=== PATIENT | male | born 1970 | race Caucasian/White ===

== ENCOUNTER 2018-11-10 20:31 | Emergency (ER) | payer OTHER, SELFPAY ==
[2018-11-10 20:35] VITALS: BP 157/99; PULSE 89; RESP 18; TEMP 36.7; O2SAT 97; BMI 29.2
--- NOTE | 2018-11-10 21:01 | DI.CT.S_ITS ---
PROCEDURE: CT SOFT TISSUE NECK W CON INDICATIONS: fullness pain, palpable mass L neck, hx x1 TECHNIQUE: After the administration of intravenous contrast, 3.0 mm axial sections acquired from the sella to the aortic arch. Additional oblique axial 3.0 mm sections acquired through the pharynx. 3 mm thick coronal and sagittal reformats were generated. For radiation dose reduction, the following was used: automated exposure control. COMPARISON: None. FINDINGS: Image quality: Excellent. Lymph nodes: No enlarged lymph nodes seen throughout the neck. Vessels: Visualized vasculature appears patent. Neck spaces: The oropharynx, nasopharynx, and pharynx demonstrate no mucosal lesions. The vocal cords, false vocal cords, pyriform sinuses, epiglottis, vallecula, and tongue base all appear normal. Extramucosal spaces appear unremarkable. Glands: There are a couple of 3 mm nodules in the left parotid. Submandibular glands appear normal. Thyroid gland is normal. Miscellaneous: Visualized brain and orbits appear normal. Lung apices appear clear. Superficial soft tissues appear normal. Bones: No suspicious bony lesions. Visualized sinuses appear unremarkable. There is fluid in the right mastoids suspicious for mastoiditis. IMPRESSION: 1. No mass effect is identified in neck. If clinical symptoms persist, recommend ENT consultation and direct visualization. 2. No cervical lymphadenopathy. 3. A couple of 3 mm nodules in the left parotid gland, probably small intraparotid lymph nodes or pleomorphic adenomas. Recommend clinical correlation and followup. Dictated by: Tamika Paige M.D. on 11/11/2018 at 7:52 Transcribed by: TRISTAN on 11/11/2018 at 7:58 Approved by: Tamika Paige M.D. on 11/11/2018 at 18:34
[2018-11-10 21:08] LABS: Add Manual Diff / Slide Review NO; Basophils Absolute Auto 100 /uL (0-100); Basophils Percent Auto 0.9 % (0-2); Eosinophils Absolute Auto 200 /uL (0-450); Eosinophils Percent Auto 3.4 % (2-4); Hemoglobin 15.2 g/dL (13.5-17.5); Lymphocytes Absolute Auto 1600 /uL (1100-4500); Lymphocytes Percent Auto 24.2 % (25-40); Mean Corpuscular HGB Conc 35.3 % (30-36); Mean Corpuscular Hemoglobin 32.2 PG (26-34); Mean Corpuscular Volume 91.1 fL (80-100); Monocytes Absolute Auto 400 /uL (0-900); Monocytes Percent Auto 6.2 % (3-14); Neutrophils Absolute Auto 4500 /uL (1500-7000); Neutrophils Percent Auto 65.3 % (50-75); Platelet Count 207 X10^3/uL (150-400); Red Blood Cell Count 4.72 X10^6/uL (4.5-5.9); Red Cell Distribution Width 13.1 % (11.6-14.8); White Blood Cell Count 6.8 X10^3/uL (4.5-11.0)
[2018-11-10] MEDS: DEXAMETHASONE 10 MG/ML VIAL IV (21:08)
[2018-11-10] MEDS: SODIUM CHLORIDE 0.9% 1,000 ML 1000 ML IV (21:09)
[2018-11-10 21:19] LABS: BUN Creatinine Ratio 21.1 (6-22); Blood Urea Nitrogen 19 mg/dL (9-20); Carbon Dioxide 24 mmol/L (22-32); Chloride 107 mmol/L (98-107); Estimated Glomerular Filt Rate > 60.0 mL/min (>60); Glucose 105 mg/dL (70-100); HEMOLYSIS 17 (0-50); Potassium 4.1 mmol/L (3.4-5.1); Sodium 140 mmol/L (137-145)
[2018-11-10 22:00] VITALS: BP 113/75
--- NOTE | 2018-11-10 23:07 | ED_ITS ---
HPI - Neck Pain/Injury General Chief Complaint: Neck Pain/Injury Stated Complaint: something bothering his throat, hard to swallow Time Seen by Provider: 11/10/18 20:40 Source: patient Mode of arrival: ambulatory Limitations: no limitations History of Present Illness HPI Narrative: 48-year-old male otherwise healthy former smoker presents with a chief complaint of a few days of left anterior neck swelling, tenderness and perceived difficulty in swallowing. He has had no fever or chills and denies nausea or vomiting. He denies any recent injury. He states many years ago he had a very similar circumstance where he developed a cyst in his throat which required intervention to drain. He already has an existing appointment with local ear nose and throat on November 22. He is admittedly anxious as reminds him of the prior episode as mentioned MD complaint: neck pain Onset (ago): day(s) Radiation: left lateral Severity: moderate Quality: aching Duration: progressively worsening Relieving factors: none Exacerbating factors: none Associated symptoms: none Treatments prior to arrival: none Related Data Previous Rx's Medication Instructions Recorded oseltamivir [Tamiflu] 75 mg PO BID #10 cap 08/01/17 Allergies Allergy/AdvReac Type Severity Reaction Status Date / Time No Known Allergies Allergy Uncoded 09/08/17 12:30 Review of Systems Constitutional Denies chills, Denies fever(s), Denies lethargy and Denies weakness Eyes Denies change in vision, Denies eye discharge, Denies irritation and Denies loss of vision ENT Ears, Nose, Mouth, and Throat: Denies change in voice, Reports neck pain, Reports sore throat and Reports throat swelling Cardiovascular Denies chest pain, Denies irregular heart rhythm, Denies lightheadedness, Denies palpitations, Denies dyspnea, Denies dyspnea on exertion and Denies orthopnea Respiratory Denies cough, Denies dyspnea, Denies dyspnea on exertion and Denies wheezing Gastrointestinal Gastrointestinal: Denies abdominal pain, Denies change in bowel habits, Denies diarrhea, Denies nausea and Denies vomiting Genitourinary Denies hematuria, Denies flank pain, Denies urinary incontinence and Denies urin erik urgency Musculoskeletal Reports neck pain Integumentary/Breasts Denies pruritus, Denies erythema, Denies rash and Denies wounds Neurologic Denies confusion, Denies loss of vision and Denies weakness Psychiatric Denies anxiety, Denies confusion, Denies depression, Denies homicidal ideation and Denies suicidal ideation Endocrine Denies palpitations Hematologic/Lymphatic Denies easy bruising Allergic/Immunologic Reports throat swelling and Denies wheezing PFSH Social History Smoking Status: Former smoker Social History Smoking Status: Former smoker Exam Narrative Exam Narrative: GENERAL: 48-year-old male appears stated age, well appearing but visibly anxious HEAD: Atraumatic. Normocephalic. No temporal or scalp tenderness. EYES: Pupils equal round and reactive. Extraocular motions intact. No scleral icterus. No injection or drainage. ENT: Nose without bleeding, purulent drainage or septal hematoma. Throat without erythema, tonsillar hypertrophy or exudate. Uvula midline. Airway patent. NECK: Mild swelling to left side of neck, mildly tender to palpation. No erythema, induration, warmth or fluctuance Trachea midline. No JVD or lymphadenopathy. CARDIOVASCULAR: Regular rate and rhythm without murmurs, gallops, or rubs. RESPIRATORY: Clear to auscultation. Breath sounds equal bilaterally. No wheezes, rales, or rhonchi. GASTROINTESTINAL: Abdomen soft, non-tender, nondistended. No hepato-splen omegaly, or palpable masses. No guarding. EXTREMITIES: No clubbing, cyanosis, or edema. No joint tenderness, effusion, or edema noted. BACK: Nontender without deformity or crepitance. No flank tenderness. NEURO: AOx3. SKIN: No rash or erythema. Initial Vital Signs Initial Vital Signs: Vital Signs Temperature 98.1 F 11/10/18 20:35 Pulse Rate 89 11/10/18 20:35 Respiratory Rate 18 11/10/18 20:35 Blood Pressure 157/99 H 11/10/18 20:35 Pulse Oximetry 97 11/10/18 20:35 Course Orders Ordered: ED Orders 11/10/18 20:55 Basic Metabolic Panel Stat Complete Blood Count AUTO DIFF Stat 11/10/18 21:01 CT soft tissue neck w con Stat Discontinued Medications Dexamethasone (Decadron) 10 mg IV NOW ONE Stop: 11/10/18 20:59 Last Admin: 11/10/18 21:08 Dose: 10 mg Sodium Chloride (Normal Saline 0.9%) 1,000 mls @ 1,000 mls/hr IV BOLUS ONE Stop: 11/10/18 22:00 Last Infusion: 11/10/18 22:45 Dose: 0 mls/hr Admin: 11/10/18 21:09 Dose: 1,000 mls/hr Vital Signs - 8 hr 11/10/18 20:35 11/10/18 22:00 11/10/18 23:14 Temperature 98.1 F Pulse Rate 89 71 Respiratory Rate 18 Blood Pressure 157/99 H 115/73 Blood Pressure [Left Arm] 113/75 Pulse Oximetry 97 98 MDM - Neck Pain/Injury Lab Data Result diagrams: 11/10/18 20:55 11/10/18 20:55 Lab Results 11/10/18 11/10/18 Range/Units 20:55 20:55 WBC 6.8 (4.5-11.0) X10^3/uL RBC 4.72 (4.5-5.9) X10^6/uL Hgb 15.2 (13.5-17.5) g/dL Hct 43.0 (41-53) % MCV 91.1 (80-100) fL MCH 32.2 (26-34) PG MCHC 35.3 (30-36) % RDW 13.1 (11.6-14.8) % Plt Count 207 (150-400) X10^3/uL Neut % (Auto) 65.3 (50-75) % Lymph % (Auto) 24.2 L (25-40) % [place] % (Auto) 6.2 (3-14) % Eos % (Auto) 3.4 (2-4) % Baso % (Auto) 0.9 (0-2) % Neut # (Auto) 4500 (7423-3145) /uL Lymph # (Auto) 1600 (2245-3146) /uL [place] # (Auto) 400 (0-900) /uL Eos # (Auto) 200 (0-450) /uL Baso # (Auto) 100 (0-100) /uL Sodium 140 (137-145) mmol/L Potassium 4.1 (3.4-5.1) mmol/L Chloride 107 (98-107) mmol/L Carbon Dioxide 24 (22-32) mmol/L BUN 19 (9-20) mg/dL Creatinine 0.90 (0.66-1.25) mg/dL Estimated GFR > 60.0 (>60) mL/min BUN/Creatinine Ratio 21.1 (6-22) Glucose 105 H (70-100) mg/dL Calcium 9.0 (8.4-10.2) mg/dL Imaging Data neck soft tissue CT: Radiologist's impression: No abscess or suspicious mass. Swelling of L submandibular exam MDM Narrative Medical decision making narrative: Multiple etiologies of left lateral neck swelling and perceived fullness and throat considered including abscess, foreign body, cyst versus other. Imaging is very reassuring. Patient resting comfortably, controlling his own secretions. Labs unremarkable. He has established care with local ENT but was encouraged to contact them tomorrow for a more prompt follow-up. He and were given return precautions and have had their questions answered to their apparent satisfaction Discharge Plan Departure Patient Disposition: Home Clinical Impression: Submandibular gland swelling Discharge Date/Time: 11/10/18 23:16 Interventions: ED Discharge Assessment Last Done: 11/10/18 23:14 Instructions: DI for Neck Pain Activity Restrictions/Additional Instructions: *You have been diagnosed with [left-sided neck swelling, CT notes submandibular gland swelling] *What to do: *Follow up with [facility], call for an appointment. Let them know you were seen in the Emergency Department and that we ask that you be seen in follow up sooner than your existing appointment on 11/22 *Return to ER if you should have any new, worsening or concerning symptoms Prescriptions: No Action oseltamivir [Tamiflu] 75 MG capsule 75 mg PO BID Qty: 10 RF: 0 Referrals: Augustus Hampton MD [Physician] -
[2018-11-10 23:14] VITALS: BP 115/73; PULSE 71; O2SAT 98
== END 2018-11-10 23:16 | disposition home or self-care (01) ==
PROVIDERS: Emergency Provider Emergency Medicine
DX: R59.0 Localized enlarged lymph nodes (principal)
CPT/HCPCS: 36591; 70491; 80048; 85025; 96361; 96374; 99283; 99284; J1100

== ENCOUNTER 2018-11-12 07:41 | Emergency (ER) | payer OTHER, SELFPAY ==
--- NOTE | 2018-11-12 07:42 | ED_ITS ---
HPI - General Adult General Chief complaint: Skin/Abscess/Foreign Body Stated complaint: bilat foot pain/rash Time Seen by Provider: 11/12/18 07:42 Source: patient Mode of arrival: ambulatory Limitations: no limitations History of Present Illness HPI narrative: Patient is a 48-year-old male who was seen here in the emergency department a couple days ago for a concern of a swelling in his neck. He was given Decadron and had a CT scan with contrast of his neck. The CT scan was unremarkable. Patient with [facility] until yesterday morning. He states he was out in his yd on a tractor when he started noticing bilateral foot pain. When he came back inside he noticed that he had a rash on his feet. Does not extend above the ankles. Has tenderness with walking. Endorses no new exposures. No fevers. No new medications. No trauma. Related Data Previous Rx's Medication Instructions Recorded prednisone 40 mg PO DAILY 7 Days #14 tab 11/12/18 Allergies Allergy/AdvReac Type Severity Reaction Status Date / Time No Known Drug Allergies Allergy Verified 11/12/18 07:51 Review of Systems Constitutional Denies fever(s) Cardiovascular Denies chest pain and Denies dyspnea Respiratory Denies dyspnea Gastrointestinal Gastrointestinal: Denies abdominal pain Genitourinary Denies dysuria Musculoskeletal Comments: Bilateral foot pain Integumentary/Breasts Comments: Rash on bilateral feet with swelling Neurologic Denies behavioral changes Psychiatric Denies behavioral changes Hematologic/Lymphatic Denies easy bleeding and Denies easy bruising [facility] Medical History Patient denies medical problems (Acute) Social History Smoking Status: Former smoker Social History Smoking Status: Former smoker Exam Initial Vital Signs Initial Vital Signs: Vital Signs Temperature 98.1 F 11/12/18 07:49 Pulse Rate 71 11/12/18 07:49 Respiratory Rate 18 11/12/18 07:49 Blood Pressure 134/81 11/12/18 07:49 Pulse Oximetry 98 11/12/18 07:49 Const General: cooperative, well developed, well groomed and No acute distress Orientation: alert and awake [facility] Head: normal to inspection and normocephalic Cardio Pulses: dorsalis pedis present bilaterally Skin Other: Patient with a rash to bilateral feet. It does not extend proximal to the ankles. Left foot is greater than right. Rash does appear to be petechial in nature. It is nonblanching. He does have a couple areas on the inside of his left foot that potentially were previous blisters. Does have a well demarcated line along the arch of the right foot however there is some petechiae on the bottom of his foot. No drainage. Not warm to the touch. Neuro Sensory Exam: no sensory deficits noted Extrem Other: Swelling to bilateral feet with left greater than right. Ankles unremarkable bilateral Psych Appearance: grossly normal and well kempt Course Orders Ordered: ED Orders 11/12/18 08:12 Basic Metabolic Panel Stat Complete Blood Count AUTO DIFF Stat Partial Thromboplastin Time Stat Prothrombin Time INR Stat Vital Signs - 8 hr 11/12/18 07:49 Temperature 98.1 F Pulse Rate 71 Respiratory Rate 18 Blood Pressure 134/81 Pulse Oximetry 98 Medical Decision Making Lab Data Lab results reviewed: Yes I reviewed the patient's lab results. Result diagrams: 11/12/18 08:12 11/12/18 08:12 Lab Results 11/12/18 11/12/18 11/12/18 Range/Units 08:12 08:12 08:12 WBC 8.3 (4.5-11.0) X10^3/uL RBC 4.33 L (4.5-5.9) X10^6/uL Hgb 13.8 (13.5-17.5) g/dL Hct 39.9 L (41-53) % MCV 92.2 (80-100) fL MCH 31.9 (26-34) PG MCHC 34.7 (30-36) % RDW 12.6 (11.6-14.8) % Plt Count 183 (150-400) X10^3/uL Neut % (Auto) 63.7 (50-75) % Lymph % (Auto) 26.6 (25-40) % [place] % (Auto) 7.4 (3-14) % Eos % (Auto) 1.8 L (2-4) % Baso % (Auto) 0.5 (0-2) % Neut # (Auto) 5300 (0507-9470) /uL Lymph # (Auto) 2200 (5514-5142) /uL [place] # (Auto) 600 (0-900) /uL Eos # (Auto) 200 (0-450) /uL Baso # (Auto) 0 (0-100) /uL PT 11.4 (10.1-12.7) SECONDS INR 1.0 (0.9-1.3) APTT 34 (26.4-36.2) SECONDS Sodium 141 (137-145) mmol/L Potassium 3.8 (3.4-5.1) mmol/L Chloride 109 H (98-107) mmol/L Carbon Dioxide 25 (22-32) mmol/L BUN 24 H (9-20) mg/dL Creatinine 0.90 (0.66-1.25) mg/dL Estimated GFR > 60.0 (>60) mL/min BUN/Creatinine Ratio 26.7 H (6-22) Glucose 83 (70-100) mg/dL Calcium 8.9 (8.4-10.2) mg/dL MDM Narrative Medical decision making narrative: Labs here in the emergency department showed normal LFTs and normal platelets. This was ordered because the petechial like look of the rash. Patient has no new exposures however upon further questioning he states that the boots that he was wearing he has only warned them 2 or 3 times prior to yesterday. He states that they were rubber boots and his feet did become extremely hot while they were in them and also sweating. His rash does not appear to be infectious in nature. I do not believe this is an allergic reaction to the Decadron or the IV contrast from his last visit here in the ER which he was concerned about. Will send him home on a course of some st eroids. He was given strict return precautions. Both he and his expressed understanding and agreement plan. Discharge Plan Departure Patient Disposition: Home Clinical Impression: Rash Instructions: DI for Rash Activity Restrictions/Additional Instructions: Take the prednisone like we discussed. I also recommend that you keep your feet out of shoes and socks for the next day if possible and keep your feet elevated as much as possible. Return to the emergency department for any new or worsening symptoms. You can use Tylenol and/or ibuprofen for any pain. You can also use Benadryl for any itching as needed. Prescriptions: New prednisone 20 mg tablet 40 mg PO DAILY 7 Days Qty: 14 RF: 0
[2018-11-12 07:49] VITALS: BP 134/81; PULSE 71; RESP 18; TEMP 36.7; O2SAT 98
[2018-11-12 08:16] LABS: Add Manual Diff / Slide Review NO; Basophils Absolute Auto 0 /uL (0-100); Basophils Percent Auto 0.5 % (0-2); Eosinophils Absolute Auto 200 /uL (0-450); Eosinophils Percent Auto 1.8 % (2-4); Hematocrit 39.9 % (41-53); Hemoglobin 13.8 g/dL (13.5-17.5); Lymphocytes Absolute Auto 2200 /uL (1100-4500); Lymphocytes Percent Auto 26.6 % (25-40); Mean Corpuscular HGB Conc 34.7 % (30-36); Mean Corpuscular Hemoglobin 31.9 PG (26-34); Mean Corpuscular Volume 92.2 fL (80-100); Monocytes Absolute Auto 600 /uL (0-900); Monocytes Percent Auto 7.4 % (3-14); Neutrophils Absolute Auto 5300 /uL (1500-7000); Neutrophils Percent Auto 63.7 % (50-75); Platelet Count 183 X10^3/uL (150-400); Red Blood Cell Count 4.33 X10^6/uL (4.5-5.9); Red Cell Distribution Width 12.6 % (11.6-14.8); White Blood Cell Count 8.3 X10^3/uL (4.5-11.0)
[2018-11-12 08:21] LABS: Prothrombin Time 11.4 SECONDS (10.1-12.7)
[2018-11-12 08:23] LABS: PTT Partial Thromboplastin Tim 34 SECONDS (26.4-36.2)
[2018-11-12 08:25] LABS: BUN Creatinine Ratio 26.7 (6-22); Blood Urea Nitrogen 24 mg/dL (9-20); Calcium 8.9 mg/dL (8.4-10.2); Carbon Dioxide 25 mmol/L (22-32); Chloride 109 mmol/L (98-107); Estimated Glomerular Filt Rate > 60.0 mL/min (>60); Glucose 83 mg/dL (70-100); HEMOLYSIS < 15 (0-50); Potassium 3.8 mmol/L (3.4-5.1); Sodium 141 mmol/L (137-145)
[2018-11-12 08:48] VITALS: BP 116/87
[2018-11-12 08:50] VITALS: PULSE 77; RESP 16; O2SAT 96
== END 2018-11-12 08:54 | disposition home or self-care (01) ==
PROVIDERS: Emergency Provider Emergency Medicine
DX: R21 Rash and other nonspecific skin eruption (principal)
CPT/HCPCS: 36415; 80048; 85025; 85610; 85730; 99282; 99283

== ENCOUNTER 2020-04-03 11:47 | Emergency (ER) | payer OTHER, SELFPAY ==
[2020-04-03 12:02] VITALS: BP 134/82; PULSE 102; RESP 16; TEMP 36.7; O2SAT 94; BMI 29.2
--- NOTE | 2020-04-03 16:15 | DI.RAD.S_ITS ---
PROCEDURE: XR CHEST 2V INDICATIONS: covid +, increasing sob, productive cough TECHNIQUE: 2 views of the chest were acquired. COMPARISON: None. FINDINGS: Surgical changes and devices: None. Lungs and pleura: Diffuse interstitial prominence with scattered ill-defined nodular opacities throughout the bilateral hemithoraces. No substantial pleural effusions or pneumothorax. Mediastinum: Mediastinal contours are normal. Heart size is normal. Bones and chest wall: No suspicious bony abnormalities. Status post prior surgical fixation of right midclavicular fracture. Soft tissues appear unremarkable. IMPRESSION: Findings compatible with multi-focal airspace disease/pneumonia to include reported history of COVID. Dictated by: Willis Hobbs M.D. on 04/03/2020 at 15:34 Approved by: Willis Hobbs M.D. on 04/03/2020 at 15:44
[2020-04-03 17:50] VITALS: BP 129/90; PULSE 85; RESP 16; TEMP 37.7; O2SAT 95
--- NOTE | 2020-04-03 18:37 | ED.URI ---
HPI - URI/Sore Throat <JOHNATHAN Catherine-BC - Last Filed: 04/03/20 19:07> General Chief Complaint: Upper Respiratory Symptoms Stated Complaint: coughing up clear phlem for 9 days Time Seen by Provider: 04/03/20 15:42 Source: patient Mode of arrival: Wheelchair Limitations: no limitations History of Present Illness HPI Narrative: The patient is a 50-year-old male former smoker who denies pertinent medical history presents with a chief complaint of continued cough. He tested positive for coronavirus 10 days ago. The patient states that he is frustrated because his cough is not improving. He had transient diarrhea. He denies any increased shortness of breath. He denies any history of lung disease such as COPD. He states he is in the emergency department today because his cough is not improved any is coughing so much that it hurts. He states he is using Tessalon Perles and [id number] cough syrup. He states he cannot sleep he is coughing so bad. Related Data Previous Rx's Medication Instructions Recorded azithromycin See Rx Instructions .ROUTE 04/03/20 .COMPLEX #6 tab codeine-guaifenesin [Guaifenesin 10 ml PO Q4-6H PRN #100 ml 04/03/20 AC] ketorolac 10 mg PO TID PRN #15 tab 04/03/20 ondansetron 4 mg PO Q6H PRN #20 tab 04/03/20 Allergies Allergy/AdvReac Type Severity Reaction Status Date / Time No Known Drug Allergies Allergy Verified 04/03/20 12:02 Review of Systems <ERAN Catherine - Last Filed: 04/03/20 19:07> Review of Systems Narrative: GENERAL: See HPI HEENT: Denies sinus pain, ear pain, sore throat, difficulty swallowing, dizziness. RESPIRATORY: See HPI CARDIOVASCULAR: Denies chest pain, palpitations, orthopnea, edema, GASTROINTESTINAL: Denies nausea, vomiting, abdominal pain, diarrhea, constipation, melena. : Denies dysuria, frequency, incontinence, hematuria, urinary retention. MUSCULOSKELETAL: denies weakness, joint pain, or bony pain SKIN: Denies rash, skin lesions, or other NEUROLOGIC: Denies weakness, headache, numbness, change in speech, confusion, seizures, incoordination. PSYCHIATRIC: No concerning psychosocial issues. 12 point review of systems is negative except for those stated above Patient History <ERAN Catherine - Last Filed: 04/03/20 19:07> Medical History Patient denies medical problems (Acute) Social History Smoking Status: Former smoker Smoking Status: Former smoker alcohol intake frequency: holidays/special occasions only Substance Use Type: does not use Exam <ERAN Catherine - Last Filed: 04/03/20 19:07> Narrative Exam Narrative: GENERAL: This is a well-nourished, well-developed patient, in appears fatigued HEAD: Atraumatic. Normocephalic. No temporal or scalp tenderness. EYES: Pupils equal round and reactive. Extraocular motions intact. No scleral icterus. No injection or drainage. ENT: Nose without bleeding, purulent drainage or septal hematoma. Throat without erythema, tonsillar hypertrophy or exudate. Uvula midline. Airway patent. NECK: Trachea midline. No JVD or lymphadenopathy. Supple, nontender, no meningeal signs. CARDIOVASCULAR: Regular rate and rhythm without murmurs, gallops, or rubs. RESPIRATORY: Coarse bilaterally to auscultation. Breath sounds equal bilaterally. No wheezes, rales, or rhonchi. Persistent dry cough during exam. GASTROINTESTINAL: Abdomen soft, non-tender, nondistended. No hepato-splenomegaly, or palpable masses. No guarding. Active bowel sounds all 4 quadrants EXTREMITIES: No clubbing, cyanosis, or edema. No joint tenderness, effusion, or edema noted. BACK: Nontender without deformity or crepitance. No flank tenderness. NEURO: AOx3. SKIN: No rash or erythema on visible skin Initial Vital Signs Initial Vital Signs: Vital Signs Temperature 98.1 F 04/03/20 12:02 Pulse Rate 102 H 04/03/20 12:02 Respiratory Rate 16 04/03/20 12:02 Blood Pressure 134/82 04/03/20 12:02 Pulse Oximetry 94 04/03/20 12:02 <Samuel Ryder MD - Last Filed: 04/04/20 08:16> Initial Vital Signs Initial Vital Signs: Vital Signs Temperature 98.1 F 04/03/20 12:02 Pulse Rate 102 H 04/03/20 12:02 Respiratory Rate 16 04/03/20 12:02 Blood Pressure 134/82 04/03/20 12:02 Pulse Oximetry 94 04/03/20 12:02 Scores <ERAN Catherine - Last Filed: 04/03/20 19:07> GCS Veronica coma scale eye opening: Spontaneous Veronica coma scale verbal response: Orientated Veronica coma scale motor response: Obey commands Benedict coma scale total score: 15 Course <ERAN Catherine - Last Filed: 04/03/20 19:07> Orders Ordered: ED Orders 04/03/20 16:15 XR chest 2V Stat Vital Signs Vital signs: Vital Signs - 8 hr 04/03/20 12:02 04/03/20 17:50 Temperature 98.1 F 99.9 F H Pulse Rate 102 H 85 Respiratory Rate 16 16 Blood Pressure 134/82 129/90 Pulse Oximetry 94 95 <Samuel Ryder MD - Last Filed: 04/04/20 08:16> Orders Ordered: ED Orders 04/03/20 16:15 XR chest 2V Stat Vital Signs Vital signs: Vital Signs - 8 hr 04/03/20 12:02 04/03/20 17:50 Temperature 98.1 F 99.9 F H Pulse Rate 102 H 85 Respiratory Rate 16 16 Blood Pressure 134/82 129/90 Pulse Oximetry 94 95 MDM - URI/Sore Throat <ERAN Catherine - Last Filed: 04/03/20 19:07> Imaging Data Chest x-ray: Radiologist's Impression: [address] [place] [id number] XRay Report Signed Patient: Patrick Espinoza LMR#: [id number] : 1970Acct:[id number] Age/Sex: 50 / MDate of Service: 04/03/20 Loc: ED Accession Number: [id number] Procedure: XR chest 2V Ordering Provider: Nereida Matos PROCEDURE: XR CHEST 2V INDICATIONS: covid +, increasing sob, productive cough TECHNIQUE: 2 views of the chest were acquired. COMPARISON: None. FINDINGS: Surgical changes and devices: None. Lungs and pleura: Diffuse interstitial prominence with scattered ill-defined nodular opacities throughout the bilateral hemithoraces. No substantial pleural effusions or pneumothorax. Mediastinum: Mediastinal contours are normal. Heart size is normal. Bones and chest wall: No suspicious bony abnormalities. Status post prior surgical fixation of right midclavicular fracture. Soft tissues appear unremarkable. IMPRESSION: Findings compatible with multi-focal airspace disease/pneumonia to include reported history of COVID. Dictated by: Willis Hobbs M.D. on 04/03/2020 at 15:34 Approved by: Willis Hobbs M.D. on 04/03/2020 at 15:44 [facility] Narrative Medical decision making narrative: The patient is a 50-year-old male who presents with a chief complaint of continued coughing related to coronavirus. X-ray was obtained, does show multifocal airspace disease consistent with coronavirus. Patient is hemodynamically stable, oxygenating well, 95% on room air. He comes in mostly because he is concerned about continued cough. I discussed at length continued symptomatic care. Reviewed patient's x-ray and case with Dr Ryder and elected to treat the patient with azithromycin at this point. Did give small course of guaifenesin with codeine to help the patient sleep, prescription of Zofran as well as Toradol. Discussed conflicting resort regarding NSAIDs and coronavirus, but patient states he is tolerating ibuprofen while at home would like something else for extra aches and pains. Discussed not combining with ibuprofen. Encouraged follow-up with primary care provider in the next few days as well as come back to the ER for any significant shortness of breath or acute concerns. Patient has no questions or concerns upon discharge and states understanding of return precautions as well as follow-up care. Did give patient emergency department phone number so that he can call before arriving to the ER. Discharge Plan Departure Patient Disposition: Home Clinical Impression: COVID-19, Cough Discharge Date/Time: 04/03/20 18:22 Instructions: DI for Cough -- Adult, DI for COVID-19 (Suspected or Confirmed ), Coronavirus Disease 2019, Can COVID-19 be prevented? Activity Restrictions/Additional Instructions: Thank you for trusting us with your care today. As discussed, your x-ray shows consistency with coronavirus. Given that you recently tested positive, this is not surprising. However your vital signs are stable and you are oxygenating well I sent four prescriptions to in [place]. This includes ketorolac or Toradol for pain, an antibiotic, guaifenesin with codeine, as well as Zofran or ondansetron if your nauseous with medication I have given you a prescription of Toradol. This is an NSAID. Do not combine it with other NSAIDs such as Aleve or ibuprofen. I suggest taking it with some food, as it can irritate your stomach. I have given you a prescription of a narcotic for cough. Be aware that this can be constipating and sedating. I encouraged taking with a stool softener, pushing fluids and fiber. Do not take and drive, operate heavy machinery, etc. Do not combine it with any other sedating substances such as alcohol. The combination of narcotics and alcohol and/or other sedatives can be lethal. Please follow-up with primary care provider in the next few days. Please wash your hands cover your intake all necessary precautions As discussed, please call the emergency department at [phone] if you have to come back to the ER. That we can prepared to take excellent care of you. If you for get that is okay, just please let us know if you check in Prescriptions: New azithromycin 250 mg tablet See Rx Instructions .ROUTE .COMPLEX Qty: 6 RF: 0 ondansetron 4 mg tablet,disintegrating 4 mg PO Q6H PRN (Reason: nausea and vomiting) Qty: 20 RF: 0 ketorolac 10 mg tablet 10 mg PO TID PRN (Reason: pain) Qty: 15 RF: 0 codeine-guaifenesin [Guaifenesin AC] 10-100 mg/5 mL liquid 10 ml PO Q4-6H PRN (Reason: cough) Qty: 100 RF: 0 Referrals: Janeth Verdugo PA-C [Primary Care Provider] - <Samuel Ryder MD - Last Filed: 04/04/20 08:16> Cosign ED Attending Cosignature Attestation: I was immediately available in the department for consultation. This documentation has been reviewed and I agree with assessment and plan. Supervised by Samuel Ryder MD
== END 2020-04-03 18:22 | disposition home or self-care (01) ==
PROVIDERS: Emergency Provider Nurse Practitioner Family; PCP Physician Assistant Medical
DX: U07.1 COVID-19 (principal); R05 Cough; R06.02 Shortness of breath
CPT/HCPCS: 71046; 99283

== ENCOUNTER 2021-02-12 13:49 | Emergency (ER) | payer OTHER, SELFPAY ==
[2021-02-12] VITALS (12 sets, daily range): BP systolic 121–154; BP diastolic 77–89; PULSE 56–69; RESP 12–25; TEMP 36.7–37; O2SAT 94–99; BMI 29.5
--- NOTE | 2021-02-12 13:57 | DI.RAD.S_ITS ---
PROCEDURE: XR CHEST 1V INDICATIONS: Chest pain TECHNIQUE: One view of the chest was acquired. COMPARISON: [facility], CR, XR CHEST 2V, 04/03/2020, 16:18. FINDINGS: Surgical changes and devices: Right clavicular ORIF. Lungs and pleura: Lungs are clear. No pleural effusions or pneumothorax. Mediastinum: Mediastinal contours appear normal. Heart size is at the upper limits of normal. Bones and chest wall: No suspicious bony lesions. Overlying soft tissues appear unremarkable. IMPRESSION: No acute pulmonary process. Dictated by: Bina Larose M.D. on 02/12/2021 at 14:15 Approved by: Bina Larose M.D. on 02/12/2021 at 14:16
--- NOTE | 2021-02-12 14:02 | ED.GENADULT ---
HPI - General Adult General Chief complaint: Chest Pain Stated complaint: CHEST PAIN Time Seen by Provider: 02/12/21 13:56 Source: patient Mode of arrival: EMS History of Present Illness HPI narrative: 51-year-old male was brought in by EMS for evaluation of chest discomfort. He states he had some slight discomfort yesterday but really is here because he woke up this morning approximately 0700 hours with a pressure in his chest. Also pain to his right shoulder. Is been constant since that time. Not worse with palpation. No worse with movement. No worse with breathing. No prior history of cardiac issues. Is afebrile. No coughing. Is unvaccinated gets COVID-19 but had COVID the end of last year. EMS was called. He received nitro without any change in his symptoms. Also received morphine with only minor improvement. Has not tried anything for his symptoms otherwise prior to arrival. Related Data Previous Rx's Medication Instructions Recorded azithromycin 250 mg tablet See Rx Instructions .ROUTE 04/03/20 .COMPLEX #6 tab codeine 10 mg-guaifenesin 100 mg/5 10 ml PO Q4-6H PRN #100 ml 04/03/20 mL oral liquid (Guaifenesin AC) ketorolac 10 mg tablet 10 mg PO TID PRN #15 tab 04/03/20 ondansetron 4 mg disintegrating 4 mg PO Q6H PRN #20 tab 04/03/20 tablet codeine 10 mg-guaifenesin 100 mg/5 10 ml PO Q4-6H PRN #100 ml 04/04/20 mL oral liquid (Guaifenesin AC) Allergies Allergy/AdvReac Type Severity Reaction Status Date / Time No Known Drug Allergies Allergy Verified 04/03/20 12:02 Review of Systems Constitutional Constitutional: Reports system reviewed and no additional complaints, except as documented ENT Ears, Nose, Mouth, and Throat: Denies sore throat Cardiovascular Cardiovascular: Reports as per HPI and Reports system reviewed and no additional complaints, except as documented Respiratory Respiratory: Reports system reviewed and no additional complaints, except as documented Gastrointestinal Gastrointestinal: Reports system reviewed and no additional complaints, except as documented Musculoskeletal Musculoskeletal: Reports system reviewed and no additional complaints, except as documented Integumentary/Breasts Skin/Breast: Reports system reviewed and no additional complaints, except as documented Neurologic Neurologic: Reports system reviewed and no additional complaints, except as documented Hematologic/Lymphatic On Anticoagulants: No Patient History Medical History (Updated 02/12/21 @ 17:05 by Rk Arreaga DO) Patient denies medical problems Social History Smoking Status: Former smoker Smoking Status: Former smoker alcohol intake frequency: holidays/special occasions only Substance Use Type: does not use Exam Initial Vital Signs Initial Vital Signs: Vital Signs Pulse Rate 66 02/12/21 13:54 Pulse Oximetry 97 02/12/21 13:54 Const General: cooperative and comfortable HENMT Head: normal to inspection and normocephalic Eyes General: appearance normal, both eyes and all related structures Resp Effort & Inspection: normal respiratory effort Auscultation: clear to auscultation bilaterally Cardio Rate: regular rate Rhythm: regular rhythm GI Inspection: normal to inspection Skin General: no rashes or lesions noted Neuro General: patient alert, patient awake, patient oriented x3 and moves all extremities Extrem General: normal to inspection Psych Appearance: grossly normal Scores GCS Veronica coma scale eye opening: Spontaneous Veronica coma scale verbal response: Orientated Veronica coma scale motor response: Obey commands Veronica coma scale total score: 15 PERC Score Age greater than or equal to 50 years: Yes Heart rate greater than or equal to 100 bpm: No Room Air O2 Sat less than 95%: No Unilateral leg swelling: No Recent trauma or surgery: No Hemoptysis: No Prior PE or DVT: No Hormone Use: No Total PERC Score: 1 Course Orders Ordered: ED Orders 02/12/21 13:57 XR chest 1V Stat 02/12/21 13:58 EKG-12 Lead Stat 02/12/21 14:00 Complete Blood Count AUTO DIFF Stat Comprehensive Metabolic Panel Stat Lipase Stat Troponin & CK Cardiac Panel Stat 02/12/21 14:46 D Dimer Stat 02/12/21 16:08 Troponin & CK Cardiac Panel Stat Discontinued Medications Lorazepam (Lorazepam 0.5 Mg Tablet) 1 mg PO NOW ONE Stop: 02/12/21 15:36 Last Admin: 02/12/21 15:49 Dose: 1 mg Documented by: SAGAR Vital Signs Vital signs: Vital Signs - 8 hr 02/12/21 13:54 02/12/21 14:00 02/12/21 14:03 Temperature 98.0 F Pulse Rate 66 66 61 Respiratory Rate 13 20 Blood Pressure 128/78 Pulse Oximetry 97 95 95 02/12/21 14:30 02/12/21 14:45 02/12/21 15:00 Temperature Pulse Rate 69 61 57 L Respiratory Rate 25 H 12 14 Blood Pressure 121/77 126/77 Pulse Oximetry 95 94 95 02/12/21 15:30 02/12/21 15:48 02/12/21 16:00 Temperature Pulse Rate 59 L 57 L 56 L Respiratory Rate 14 15 17 Blood Pressure 154/88 H 140/89 129/86 Pulse Oximetry 97 96 99 02/12/21 16:30 02/12/21 17:00 02/12/21 17:18 Temperature 98.6 F Pulse Rate 62 66 Respiratory Rate 17 13 Blood Pressure 127/86 132/88 Pulse Oximetry 98 97 Medical Decision Making Lab Data Lab results reviewed: Yes I reviewed the patient's lab results. Result diagrams: 02/12/21 14:00 02/12/21 14:00 Labs: Lab Results 02/12/21 02/12/21 02/12/21 Range/Units 14:00 14:00 14:46 WBC 4.3 L (4.5-11.0) X10^3/uL RBC 4.64 (4.5-5.9) X10^6/uL Hgb 14.8 (13.5-17.5) g/dL Hct 42.6 (41-53) % MCV 91.8 (80-100) fL MCH 31.8 (26-34) PG MCHC 34.6 (30-36) % RDW 12.9 (11.6-14.8) % Plt Count 188 (150-400) X10^3/uL Neut % (Auto) 53.7 (50-75) % Lymph % (Auto) 31.8 (25-40) % Sullivan % (Auto) 10.4 (3-14) % Eos % (Auto) 3.1 (2-4) % Baso % (Auto) 1.0 (0-2) % Neut # (Auto) 2300 (9143-0888) /uL Lymph # (Auto) 1400 (4537-2896) /uL Sullivan # (Auto) 400 (0-900) /uL Eos # (Auto) 100 (0-450) /uL Baso # (Auto) 0 (0-100) /uL D-Dimer < 200 (<230) ng/mL Sodium 140 (137-145) mmol/L Potassium 4.1 (3.4-5.1) mmol/L Chloride 108 H (98-107) mmol/L Carbon Dioxide 26 (22-32) mmol/L BUN 17 (9-20) mg/dL Creatinine 0.86 (0.66-1.25) mg/dL Estimated GFR > 60.0 (>60) mL/min BUN/Creatinine Ratio 19.8 (6-22) Glucose 93 (70-100) mg/dL Calcium 9.0 (8.4-10.2) mg/dL Total Bilirubin 0.6 (0.2-1.3) mg/dL AST 31 (17-59) IU/L ALT 34 (<50) IU/L Alkaline Phosphatase 50 (38-126) U/L Total Creatine Kinase 228 H (55-170) U/L CK-MB (CK-2) 0.66 (<2.37) ng/mL CK-MB (CK-2) Rel Index 0.3 L (1.5-5.0) % Troponin I < 0.012 (0.01-0.034) ng/mL Total Protein 7.2 (6.3-8.2) g/dL Albumin 4.5 (3.5-5.0) g/dL Globulin 2.7 (1.7-4.1) g/dL Albumin/Globulin Ratio 1.7 (1.0-2.8) Lipase 104 (23-300) U/L 02/12/21 Range/Units 16:08 WBC (4.5-11.0) X10^3/uL RBC (4.5-5.9) X10^6/uL Hgb (13.5-17.5) g/dL Hct (41-53) % MCV (80-100) fL MCH (26-34) PG MCHC (30-36) % RDW (11.6-14.8) % Plt Count (150-400) X10^3/uL Neut % (Auto) (50-75) % Lymph % (Auto) (25-40) % Sullivan % (Auto) (3-14) % Eos % (Auto) (2-4) % Baso % (Auto) (0-2) % Neut # (Auto) (7104-7681) /uL Lymph # (Auto) (9846-9547) /uL Sullivan # (Auto) (0-900) /uL Eos # (Auto) (0-450) /uL Baso # (Auto) (0-100) /uL D-Dimer (<230) ng/mL Sodium (137-145) mmol/L Potassium (3.4-5.1) mmol/L Chloride (98-107) mmol/L Carbon Dioxide (22-32) mmol/L BUN (9-20) mg/dL Creatinine (0.66-1.25) mg/dL Estimated GFR (>60) mL/min BUN/Creatinine Ratio (6-22) Glucose (70-100) mg/dL Calcium (8.4-10.2) mg/dL Total Bilirubin (0.2-1.3) mg/dL AST (17-59) IU/L ALT (<50) IU/L Alkaline Phosphatase (38-126) U/L Total Creatine Kinase 203 H (55-170) U/L CK-MB (CK-2) 0.60 (<2.37) ng/mL CK-MB (CK-2) Rel Index 0.3 L (1.5-5.0) % Troponin I < 0.012 (0.01-0.034) ng/mL Total Protein (6.3-8.2) g/dL Albumin (3.5-5.0) g/dL Globulin (1.7-4.1) g/dL Albumin/Globulin Ratio (1.0-2.8) Lipase (23-300) U/L Imaging Data Chest x-ray: Radiologist's Impression: [address] [address] XRay Report Signed Patient: Patrick Espinoza MR#: [id number] : 1970 Acct:[id number] Age/Sex: 51 / M Date of Service: 02/12/21 Loc: ED Accession Number: [id number] ?? Procedure: XR chest 1V Ordering Provider: Rk Arreaga D.O. PROCEDURE:? XR CHEST 1V ? INDICATIONS:? Chest pain ? TECHNIQUE:? One view of the chest was acquired.? ? COMPARISON:? [facility], CR, XR CHEST 2V, 04/03/2020, 16:18. ? FINDINGS:? ? Surgical changes and devices:? Right clavicular ORIF. ? Lungs and pleura:? Lungs are clear.? No pleural effusions or pneumothorax.? ? Mediastinum:? Mediastinal contours appear normal.? Heart size is at the upper limits of normal. ? Bones and chest wall:? No suspicious bony lesions.? Overlying soft tissues appear unremarkable.? ? IMPRESSION:? No acute pulmonary process. ? ? Dictated by: Bina Larose M.D. on 02/12/2021 at 14:15 ? ? Approved by: Bina Larose M.D. on 02/12/2021 at 14:16? ECG Data Attestation: I personally reviewed and interpreted this ECG as follows: Interpretation: Sinus rhythm Ventricular rate is 66 Normal axis Normal QRS Normal QTC No ST T wave changes MDM Narrative Medical decision making narrative: Patient has 2- troponins. Both of them greater than 6 hours at the onset of his constant discomfort. Chest x-ray is unremarkable. EKG is unremarkable. He did feel better after the Ativan. Do suspect a component of stress and anxiety to his symptoms however he was informed that he needed to contact his primary doctor for follow-up and discuss further workup to include stress testing. He expressed understanding agreement. Discharge Plan Departure Patient Disposition: Home Clinical Impression: Atypical chest pain Instructions: DI for Atypical Chest Pain Activity Restrictions/Additional Instructions: Your workup here in the emergency department is very reassuring. I recommend that you contact your primary doctor to discuss further workup to include the indications for stress test. Continue all of your medications as directed. Return to the emergency department for any new or worsening symptoms Prescriptions: No Action azithromycin 250 mg tablet See Rx Instructions .ROUTE .COMPLEX Qty: 6 RF: 0 ondansetron 4 mg tablet,disintegrating 4 mg PO Q6H PRN (Reason: nausea and vomiting) Qty: 20 RF: 0 ketorolac 10 mg tablet 10 mg PO TID PRN (Reason: pain) Qty: 15 RF: 0 codeine-guaifenesin [Guaifenesin AC] 10-100 mg/5 mL liquid 10 ml PO Q4-6H PRN (Reason: cough) Qty: 100 RF: 0 codeine-guaifenesin [Guaifenesin AC] 10-100 mg/5 mL liquid 10 ml PO Q4-6H PRN (Reason: cough) Qty: 100 RF: 0 Referrals: Janeth Verdugo PA-C [Primary Care Provider] -
[2021-02-12 14:15] LABS: Add Manual Diff / Slide Review NO; Basophils Absolute Auto 0 /uL (0-100); Eosinophils Absolute Auto 100 /uL (0-450); Eosinophils Percent Auto 3.1 % (2-4); Hematocrit 42.6 % (41-53); Hemoglobin 14.8 g/dL (13.5-17.5); Lymphocytes Absolute Auto 1400 /uL (1100-4500); Lymphocytes Percent Auto 31.8 % (25-40); Mean Corpuscular HGB Conc 34.6 % (30-36); Mean Corpuscular Hemoglobin 31.8 PG (26-34); Mean Corpuscular Volume 91.8 fL (80-100); Monocytes Absolute Auto 400 /uL (0-900); Monocytes Percent Auto 10.4 % (3-14); Neutrophils Absolute Auto 2300 /uL (1500-7000); Neutrophils Percent Auto 53.7 % (50-75); Platelet Count 188 X10^3/uL (150-400); Red Blood Cell Count 4.64 X10^6/uL (4.5-5.9); Red Cell Distribution Width 12.9 % (11.6-14.8); White Blood Cell Count 4.3 X10^3/uL (4.5-11.0)
[2021-02-12 14:29] LABS: Alanine Aminotransferase 34 IU/L (<50); Albumin 4.5 g/dL (3.5-5.0); Albumin Globulin Ratio 1.7 (1.0-2.8); Alkaline Phosphatase 50 U/L (38-126); Aspartate Aminotransferase 31 IU/L (17-59); BUN Creatinine Ratio 19.8 (6-22); Bilirubin Total 0.6 mg/dL (0.2-1.3); Blood Urea Nitrogen 17 mg/dL (9-20); Carbon Dioxide 26 mmol/L (22-32); Chloride 108 mmol/L (98-107); Creatine Kinase 228 U/L (55-170); Estimated Glomerular Filt Rate > 60.0 mL/min (>60); Globulin 2.7 g/dL (1.7-4.1); Glucose 93 mg/dL (70-100); HEMOLYSIS 18 (0-50); Lipase 104 U/L (23-300); Potassium 4.1 mmol/L (3.4-5.1); Sodium 140 mmol/L (137-145); Total Protein 7.2 g/dL (6.3-8.2)
[2021-02-12 14:41] LABS: Troponin I < 0.012 ng/mL (0.01-0.034)
[2021-02-12 14:44] LABS: CKMB % Relative Index 0.3 % (1.5-5.0); Creatine Kinase MB 0.66 ng/mL (<2.37)
[2021-02-12 15:01] LABS: D Dimer < 200 ng/mL (<230)
[2021-02-12] MEDS: LORazepam 0.5 MG TABLET 1 MG PO (15:49)
[2021-02-12 16:26] LABS: Creatine Kinase 203 U/L (55-170)
[2021-02-12 16:38] LABS: Troponin I < 0.012 ng/mL (0.01-0.034)
[2021-02-12 16:42] LABS: CKMB % Relative Index 0.3 % (1.5-5.0)
== END 2021-02-12 17:29 | disposition home or self-care (01) ==
PROVIDERS: Emergency Provider Emergency Medicine; PCP Physician Assistant Medical
DX: R07.89 Other chest pain (principal); Z86.16 Personal history of COVID-19
CPT/HCPCS: 36415; 71045; 80053; 82550; 82553; 83690; 84484; 85025; 85379; 93005; 93010; 99283; 99284

== ENCOUNTER 2024-10-27 23:36 | Emergency (ER) | payer OTHER, SELFPAY ==
--- NOTE | 2024-10-27 23:39 | DI.RAD.S_ITS ---
PROCEDURE: XR CHEST 1V INDICATIONS: Chest Pressure TECHNIQUE: One view of the chest was acquired. COMPARISON: [facility], CR, XR CHEST 1V, 02/12/2021, 14:07. [facility], CR, XR CHEST 2V, 04/03/2020, 16:18. FINDINGS: Surgical changes and devices: Right clavicle plate and screw fixation. Lungs and pleura: Lungs are clear. No pleural effusions or pneumothorax. Mediastinum: Mediastinal contours appear normal. Heart size is enlarged. Bones and chest wall: No suspicious bony lesions. Overlying soft tissues appear unremarkable. IMPRESSION: No acute cardiopulmonary abnormality is seen. Dictated by: Meet Murphy M.D. on 10/27/2024 at 23:56 Approved by: Meet Murphy M.D. on 10/27/2024 at 23:56
--- NOTE | 2024-10-27 23:44 | EKG_ITS ---
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
[2024-10-27 23:51] VITALS: BP 123/72; PULSE 75; RESP 18; O2SAT 96; BMI 30.7
[2024-10-28 00:01] VITALS: BP 114/73; PULSE 74; RESP 15; O2SAT 95
--- NOTE | 2024-10-28 00:06 | PC.NURSE ---
Pt states I feel a flutter in my chest and the urge to cough, then the cough seems to clear it. Also states When I laid down to go to sleep I just knew something wasn't right.
[2024-10-28 00:28] LABS: Add Manual Diff / Slide Review NO; Basophils Absolute Auto 100 /uL (0-100); Basophils Percent Auto 0.8 % (0-2); Eosinophils Absolute Auto 300 /uL (0-450); Eosinophils Percent Auto 4.2 % (2-4); Hematocrit 41.8 % (41-53); Hemoglobin 14.8 g/dL (13.5-17.5); Lymphocytes Absolute Auto 2200 /uL (1100-4500); Lymphocytes Percent Auto 28.2 % (25-40); Mean Corpuscular HGB Conc 35.3 % (30-36); Mean Corpuscular Hemoglobin 32.8 PG (26-34); Mean Corpuscular Volume 92.8 fL (80-100); Monocytes Absolute Auto 700 /uL (0-900); Monocytes Percent Auto 9.6 % (3-14); Neutrophils Absolute Auto 4400 /uL (1500-7000); Neutrophils Percent Auto 57.2 % (50-75); Platelet Count 193 X10^3/uL (150-400); Red Blood Cell Count 4.51 X10^6/uL (4.5-5.9); Red Cell Distribution Width 13.2 % (11.6-14.8); White Blood Cell Count 7.7 X10^3/uL (4.5-11.0)
[2024-10-28 00:30] VITALS: BP 113/73; PULSE 69; RESP 14; O2SAT 94
[2024-10-28 00:40] LABS: Prothrombin Time 11.3 SECONDS (9.4-12.5)
[2024-10-28 00:43] LABS: Alanine Aminotransferase 66 IU/L (<50); Albumin 4.1 g/dL (3.5-5.0); Albumin Globulin Ratio 1.6 (1.0-2.8); Alkaline Phosphatase 73 U/L (38-126); Aspartate Aminotransferase 39 IU/L (17-59); BUN Creatinine Ratio 20.7 (6-22); Bilirubin Total 0.5 mg/dL (0.2-1.3); Blood Urea Nitrogen 23 mg/dL (9-20); Calcium 9.2 mg/dL (8.4-10.2); Carbon Dioxide 23 mmol/L (22-32); Chloride 109 mmol/L (98-107); Creatine Kinase 104 U/L (55-170); Estimated Glomerular Filt Rate > 60 mL/min (>60); Globulin 2.6 g/dL (1.7-4.1); Glucose 105 mg/dL (70-99); HEMOLYSIS 21 (0-50); Lipase 139 U/L (23-300); Magnesium 2.1 mg/dL (1.6-2.3); PTT Partial Thromboplastin Tim 36 SECONDS (25.1-36.5); Potassium 3.9 mmol/L (3.4-5.1); Sodium 139 mmol/L (137-145); Total Protein 6.7 g/dL (6.3-8.2)
[2024-10-28 00:54] LABS: NT-proBNP (BNP-Adult 18+) < 20 pg/mL (<125); Troponin I < 0.012 ng/mL (0.01-0.034)
[2024-10-28 01:00] VITALS: BP 120/70; PULSE 70; RESP 14; O2SAT 92
[2024-10-28 01:30] VITALS: BP 120/69; PULSE 65; RESP 16; O2SAT 91
[2024-10-28 02:00] VITALS: BP 122/71; PULSE 63; RESP 17; O2SAT 92
[2024-10-28 02:30] VITALS: BP 111/74; PULSE 58; RESP 14; O2SAT 94
--- NOTE | 2024-10-28 02:35 | ED_ITS ---
HPI - Chest Pain General Chief Complaint: Chest Pain Stated Complaint: chest pressure Time Seen by Provider: 10/28/24 02:35 Source: patient, EMS, RN notes reviewed and old records reviewed Mode of arrival: EMS Limitations: no limitations History of Present Illness HPI narrative: 54-year-old male no reported medical issues who presents with complaint of some substernal pressure and a rolling/fluttering sensation that started Wednesday morning proceeded throughout the day. Patient states it is currently resolved. Did have some episodes here in the department. Denies fevers, cold or congestion. Denies any shortness of breath. States did make him feel like he needed to cough. Denies any foul taste in his mouth. Patient states did not radiate to his back, neck, belly or arms. Has not had similar in the past. Has had some chronic swelling in his right lower extremity on and off in the past states he was has a history of hip pain but no prior surgeries in that leg. No warmth, no erythema or other skin changes. Denies any nausea or vomiting no diarrhea or constipation. No urinary symptoms. No lightheadedness or passing out. He was states no daily medications did not take any prescription meds. Prior history of clavicle surgery. No known drug allergies. No tobacco, alcohol or recreational drugs. He is accompanied by his . States his mom had angioplasty in her later years. No known DVT or blood clot history for himself or family. He denies any long distance travel. Related Data Previous Rx's ?Medication ?Instructions ?Recorded azithromycin 250 mg tablet See Rx Instructions PO .COM PLEX #6 04/03/20 tabs codeine 10 mg-guaifenesin 100 mg/5 10 ml PO Q4-6H PRN cough #100 mL 04/03/20 mL oral liquid (Guaifenesin AC) ketorolac 10 mg tablet 10 mg PO TID PRN pain #15 ta bs 04/03/20 ondansetron 4 mg disintegrating 4 mg PO Q6H PRN nausea and 04/03/20 tablet vomiting #20 tabs codeine 10 mg-guaifenesin 100 mg/5 10 ml PO Q4-6H PRN cough #100 mL 04/04/20 mL oral liquid (Guaifenesin AC) Allergies Allergy/AdvReac Type Severity Reaction Status Date / Time No Known Drug Allergies Allergy Verified 04/03/20 12:02 Review of Systems Review of Systems ROS Unobtainable: All systems reviewed & are unremarkable except as noted in HPI and below Patient History Medical History (Updated 10/28/24 @ 02:59 by Nereida Chahal DO) Patient denies medical problems alcohol intake frequency: holidays/special occasions only Exam Narrative Exam Narrative: GENERAL: Alert and oriented x three, male in mild distress HEENT: Head normocephalic, atraumatic, EOMI, pupils reactive, face symmetric, moist mucous membranes NECK: Supple, full range of motion CARDIOVASCULAR: Regular rate and rhythm without murmurs, rubs or gallops. RESPIRATORY: Breath sounds equal bilaterally, no wheezes rales or rhonchi. ABDOMEN: Soft, nontender. Normoactive bowel sounds all 4 quadrants. No guarding or rebound, rigidity, no mass : No CVA tenderness EXTREMITIES: Normal range of motion, no clubbing. Trace pedal edema left slightly greater than right. Neurovascularly intact NEUROLOGICAL: Cranial nerves II through XII grossly intact. Moving all extremities SKIN: Warm, dry, no petechiae, no rashes or lesions. Initial Vital Signs Initial Vital Signs: Vital Signs Pulse Rate 75 10/27/24 23:51 Respiratory Rate 18 10/27/24 23:51 Blood Pressure 123/72 10/27/24 23:51 Pulse Oximetry 96 10/27/24 23:51 Oxygen Delivery Method Room Air 10/27/24 23:51 Course Orders Ordered: Discontinued Medications Aspirin (Aspirin 81 Mg Chew Tab) 324 mg PO NOW ONE Stop: 10/27/24 23:40 Last Admin: 10/28/24 00:17 Dose: Not Given Documented By: LS Vital Signs Vital signs: Vital Signs - 8 hr 10/27/24 23:51 10/28/24 00:01 10/28/24 00:01 Pulse Rate 75 74 Respiratory Rate 18 15 Blood Pressure 123/72 114/73 Pulse Oximetry 96 95 Oxygen Delivery Method Room Air Room Air 10/28/24 00:30 10/28/24 00:30 Pulse Rate 69 Respiratory Rate 14 Blood Pressure 113/73 Pulse Oximetry 94 Oxygen Delivery Method Room Air MDM - Chest Pain Lab Data 10/28/24 00:06 10/28/24 00:06 Labs: Lab Results 10/28/24 10/28/24 Range/Units 00:06 02:06 WBC 7.7 (4.5-11.0) X10^3/uL RBC 4.51 (4.5-5.9) X10^6/uL Hgb 14.8 (13.5-17.5) g/dL Hct 41.8 (41-53) % MCV 92.8 (80-100) fL MCH 32.8 (26-34) PG MCHC 35.3 (30-36) % RDW 13.2 (11.6-14.8) % Plt Count 193 (150-400) X10^3/uL Neut % (Auto) 57.2 (50-75) % Lymph % (Auto) 28.2 (25-40) % [place] % (Auto) 9.6 (3-14) % Eos % (Auto) 4.2 H (2-4) % Baso % (Auto) 0.8 (0-2) % Neut # (Auto) 4400 (0245-7144) /uL Lymph # (Auto) 2200 (6260-8116) /uL [place] # (Auto) 700 (0-900) /uL Eos # (Auto) 300 (0-450) /uL Baso # (Auto) 100 (0-100) /uL PT 11.3 (9.4-12.5) SECONDS INR 1.0 (0.9-1.3) APTT 36 (25.1-36.5) SECONDS Sodium 139 (137-145) mmol/L Potassium 3.9 (3.4-5.1) mmol/L Chloride 109 H (98-107) mmol/L Carbon Dioxide 23 (22-32) mmol/L BUN 23 H (9-20) mg/dL Creatinine 1.11 (0.66-1.25) mg/dL Estimated GFR > 60 (>60) mL/min BUN/Creatinine Ratio 20.7 (6-22) Glucose 105 H (70-99) mg/dL Calcium 9.2 (8.4-10.2) mg/dL Magnesium 2.1 (1.6-2.3) mg/dL Total Bilirubin 0.5 (0.2-1.3) mg/dL AST 39 (17-59) IU/L ALT 66 H (<50) IU/L Alkaline Phosphatase 73 (38-126) U/L Total Creatine Kinase 104 (55-170) U/L Troponin I < 0.012 < 0.012 (0.01-0.034) ng/mL NT-Pro-B Natriuret Pep < 20 (<125) pg/mL Total Protein 6.7 (6.3-8.2) g/dL Albumin 4.1 (3.5-5.0) g/dL Globulin 2.6 (1.7-4.1) g/dL Albumin/Globulin Ratio 1.6 (1.0-2.8) Lipase 139 (23-300) U/L ECG Data Attestation: I personally reviewed and interpreted this ECG as follows: Prior ECG tracings: available for review Interpretation: Sinus rhythm rate of 71 NV 176 QRS of 92 QTC of 412, no acute ST elevation depression noted. Patient was prior from 02/12/2021 which shows no acute changes. [facility] Narrative Medical decision making narrative: EKG shows sinus rhythm, no acute ST changes, prior from 02/12/2021 appears similar Labs show normal white count, hemoglobin and platelets, INR PTT are normal, chemistries show chloride of 109 BUN 23 creatinine of 1.11 otherwise normal electrolytes glucose of 105, AST 66 but with normal AST, bilirubin, alk-phos and lipase. Troponins less than 0.012 with a repeat troponin of less than 0.012 and BNP of less than 20. Chest x-ray shows no acute cardiopulmonary abnormality seen. Patient had aspirin 324 mg here in the department. Did receive nitro sublingual with EMS. Patient is currently asymptomatic. Discussed with patient workup could be palpitations, coronary artery disease, DVT/pulmonary embolism. Discussed obtaining DVT ultrasound as patient has had some chronic but intermittent swelling in his right lower extremity. He defers this we did discuss risks versus benefits. Cardiac workup, BNP, chest x-ray stent otherwise show clear acute cause he was not had any arrhythmias in the department. Patient elects to return home and follow up with primary care. Discharge Plan Departure Patient Disposition: Home Clinical Impression: Atypical chest pain, Palpitations Instructions: DI for Chest Pain Activity Restrictions/Additional Instructions: As you have elected not to pursue ultrasound of your lower extremity to rule out blood clot please follow up with your physician for recheck. Please return if you have new or worsening symptoms, new chest pain, increasing shortness of breath, lightheadedness or passing out, new swelling of your extremities, coughing up blood or other new or concerning changes. Prescriptions: No Action azithromycin 250 mg tablet See Rx Instructions .ROUTE .COMPLEX Qty: 6 0RF Rx Instructions: take 500 mg today (day 1), then 250 mg for 4 days (days 2-5) ondansetron 4 mg tablet,disintegrating 4 mg PO Q6H PRN (Reason: nausea and vomiting) Qty: 20 0RF ketorolac 10 mg tablet 10 mg PO TID PRN (Reason: pain) Qty: 15 0RF codeine-guaifenesin [Guaifenesin AC] 10-100 mg/5 mL liquid 10 ml PO Q4-6H PRN (Reason: cough) Qty: 100 0RF codeine-guaifenesin [Guaifenesin AC] 10-100 mg/5 mL liquid 10 ml PO Q4-6H PRN (Reason: cough) Qty: 100 0RF Referrals: Janeth Verdugo PA-C [Primary Care Provider, Medical] Stand Alone Forms: Patient Portal/API/Survey
[2024-10-28 02:37] LABS: Troponin I < 0.012 ng/mL (0.01-0.034)
== END 2024-10-28 03:14 | disposition home or self-care (01) ==
PROVIDERS: Emergency Provider Emergency Medicine; PCP Physician Assistant Medical
DX: R07.89 Other chest pain (principal); R00.2 Palpitations
CPT/HCPCS: 36415; 71045; 80053; 82550; 83690; 83735; 83880; 84484; 85025; 85610; 85730; 93005; 99283; 99284